=== PATIENT | male | born 1965 | race Caucasian/White ===

== ENCOUNTER 2017-05-11 23:35 | Emergency (ER) | payer OTHER ==
[2017-05-11 23:43] VITALS: TEMP 98.4
--- NOTE | 2017-05-12 | EDPHY ---
H & P Stated Complaint: cough, fever, exhausted HPI/ROS: HPI CHIEF COMPLAINT: Upper respiratory tract infection, cough, generalized weakness , chills HISTORY OF PRESENT ILLNESS: This patient very pleasant 51-year-old male, history of MS, he presents emergency room with feeling globally weak. Patient states he has been intermittently sick for the past 2-3 weeks with an upper respiratory tract infection. He did see his primary care doctor approximately a week ago and started on a Z-Hussain. He now presents emergency room with feeling global weakness. Additionally he reports some chills. No recorded temperature. He denies any chest pain. He does have a cough but nonproductive. He completed the Z-Hussain but does not feel any better. Denies any abdominal pain denies vomiting or diarrhea. States he just does not feel well. Past Medical History: MS Past Surgical History: Denies recent surgery Social History: Denies daily use of drugs alcohol tobacco. Family History: Noncontributory ROS REVIEW OF SYSTEMS: A comprehensive 10 point review of systems is otherwise negative aside from elements mentioned in the history of present illness. Exam Constitutional appears nontoxic, triage nursing summary reviewed, vital signs reviewed, awake/alert. Eyes normal conjunctivae and sclera, EOMI, PERRLA. HENT normal inspection, atraumatic, dry mucus membranes, no epistaxis, neck supple/ no meningismus, no raccoon eyes. Respiratory clear to auscultation bilaterally, normal breath sounds, no respiratory distress, no wheezing. Cardiovascular rate normal, regular rhythm, no murmur, no edema, distal pulses normal. Gastrointestinal bronchitic sounding cough on exam otherwise lung sounds are clear, soft, non-tender, no rebound, no guarding, normal bowel sounds, no distension, no pulsatile mass. Genitourinary no CVA tenderness. Musculoskeletal no midline vertebral tenderness, full range of motion, no calf swelling, no tenderness of extremities, no meningismus, good pulses, neurovascularly intact. Skin pink, warm, & dry, no rash, skin atraumatic. Neurologic awake, alert and oriented x 3, AAOx3, moves all 4 extremities equally, motor intact, sensory intact, CN II-XII intact, normal cerebellar, normal vision, normal speech. Psychiatric normal mood/affect. Heme/Lymph/Immune no lymphadenopathy. Differential Diagnosis: Includes but is not limited to in a particular order acute dehydration, electrolyte disturbance, MS flare, infection, pneumonia, influenza, viral syndrome Medical Decision Making: Plan for this patient chest x-ray two view to rule pneumonia, IV establishment IV fluid bolus, check basic blood work and electrolytes, check influenza. And re-evaluate. DuoNeb breathing treatment. Re-evaluation: EKG interpretation by me on record in [employer] system. Impression time of EKG 0025, sinus rhythm rate of 82. No acute ischemic change appreciated. No ST elevation or ST depression no T-wave abnormalities. Unremarkable nonischemic EKG. 0156: Blood work, EKG, chest x-ray reviewed. No evidence of acute cardiopulmonary disease. Patient is influenza a positive. He has had symptoms for 3-4 days however he is in MS patient. This patient is at higher risk. I will start on Tamiflu here in the emergency room 1st dose given and then prescription as prescribed. I did discuss strict return precautions with the , patient. They understand if he does worse high fever vomiting not feeling well to return emergency room. Additionally I did offer him admission for observation due to generalized weakness and influenza A however he has declined like to go home. Source: Patient - Personal History Current Tetanus Diphtheria and Acellular Pertussis (TDAP): Yes - Medical/Surgical History Hx Asthma: No Hx Chronic Respiratory Disease: No Hx Diabetes: No Hx Cardiac Disease: No Hx Renal Disease: No Hx Cirrhosis: No Hx Alcoholism: No Hx HIV/AIDS: No Hx Splenectomy or Spleen Trauma: No Other PMH: MS, relapsing poly chondritis - Social History Smoking Status: Never smoked Constitutional: Initial Vital Signs Temperature (C) 36.9 C 05/11/17 23:40 Heart Rate 90 05/11/17 23:40 Respiratory Rate 20 05/11/17 23:40 Blood Pressure 131/88 H 05/11/17 23:40 O2 Sat (%) 94 05/11/17 23:40 O2 Delivery Mode Nasal Cannula O2 (L/minute) 3 Allergies/Adverse Reactions: No Known Allergies Allergy (Unverified 05/11/17 23:39) Home Medications: Medication Instructions Recorded Baclofen 05/11/17 GABAPENTIN 05/11/17 Tysabri 05/11/17 Oseltamivir Phosphate [Tamiflu 75 75 mg PO BID #10 cap 05/12/17 mg (*)] Medical Decision Making - Data Points Laboratory Results: Laboratory Results 05/12/17 00:09 05/12/17 00:09 05/12/17 05/12/17 05/12/17 01:13 00:09 00:09 WBC RBC Hgb Hct MCV MCH MCHC RDW Plt Count MPV Neut % (Auto) Lymph % (Auto) Coffey % (Auto) Eos % (Auto) Baso % (Auto) Nucleat RBC Rel Count Absolute Neuts (auto) Absolute Lymphs (auto) Absolute Monos (auto) Absolute Eos (auto) Absolute Basos (auto) Absolute Nucleated RBC Immature Gran % Immature Gran # PT INR APTT VBG Lactic Acid 0.7 mmol/L mmol/L (0.7-2.1) Sodium Potassium Chloride Carbon Dioxide Anion Gap BUN Creatinine Estimated GFR Glucose Calcium Magnesium Pending Total Bilirubin Conjugated Bilirubin Unconjugated Bilirubin AST ALT Alkaline Phosphatase Troponin I NT-Pro-B Natriuret Pep Total Protein Albumin Nasal Influenza A PCR FLU A DETECTED (NEGATIVE) Nasal Influenza B PCR NEGATIVE FOR FLU B (NEGATIVE) 05/12/17 05/12/17 05/12/17 00:09 00:09 00:09 WBC 10.90 10^3/uL H 10^3/uL (3.80-9.50) RBC 4.68 10^6/uL 10^6/uL (4.40-6.38) Hgb 14.9 g/dL g/dL (13.7-17.5) Hct 40.5 % % (40.0-51.0) MCV 86.5 fL fL (81.5-99.8) MCH 31.8 pg pg (27.9-34.1) MCHC 36.8 g/dL H g/dL (32.4-36.7) RDW 12.3 % % (11.5-15.2) Plt Count 196 10^3/uL 10^3/uL (150-400) MPV 9.9 fL fL (8.7-11.7) Neut % (Auto) 69.4 % % (39.3-74.2) Lymph % (Auto) 17.2 % % (15.0-45.0) Coffey % (Auto) 12.6 % % (4.5-13.0) Eos % (Auto) 0.1 % L % (0.6-7.6) Baso % (Auto) 0.3 % % (0.3-1.7) Nucleat RBC Rel Count 0.2 % % (0.0-0.2) Absolute Neuts (auto) 7.58 10^3/uL H 10^3/uL (1.70-6.50) Absolute Lymphs (auto) 1.87 10^3/uL 10^3/uL (1.00-3.00) Absolute Monos (auto) 1.37 10^3/uL H 10^3/uL (0.30-0.80) Absolute Eos (auto) 0.01 10^3/uL L 10^3/uL (0.03-0.40) Absolute Basos (auto) 0.03 10^3/uL 10^3/uL (0.02-0.10) Absolute Nucleated RBC 0.02 10^3/uL H 10^3/uL (0-0.01) Immature Gran % 0.4 % % (0.0-1.1) Immature Gran # 0.04 10^3/uL 10^3/uL (0.00-0.10) PT 13.8 SEC SEC (12.0-15.0) INR 1.04 (0.83-1.16) APTT 30.4 SEC SEC (23.0-38.0) VBG Lactic Acid Sodium 138 mEq/L mEq/L (135-145) Potassium 4.2 mEq/L mEq/L (3.5-5.2) Chloride 102 mEq/L mEq/L (97-110) Carbon Dioxide 23 mEq/l D mEq/l (22-31) Anion Gap 13 mEq/L mEq/L (8-16) BUN 16 mg/dL mg/dL (7-23) Creatinine 1.0 mg/dL mg/dL (0.7-1.3) Estimated GFR > 60 Glucose 105 mg/dL H mg/dL (70-100) Calcium 9.2 mg/dL mg/dL (8.5-10.4) Magnesium Total Bilirubin 0.7 mg/dL mg/dL (0.1-1.4) Conjugated Bilirubin 0.3 mg/dL mg/dL (0.0-0.5) Unconjugated Bilirubin 0.4 mg/dL mg/dL (0.0-1.1) AST 25 IU/L IU/L (17-59) ALT 29 IU/L IU/L (21-72) Alkaline Phosphatase 67 IU/L IU/L (38-126) Troponin I < 0.012 ng/mL ng/mL (0.000-0.034) NT-Pro-B Natriuret Pep 58 pg/mL pg/mL (0-125) Total Protein 6.9 g/dL g/dL (6.3-8.2) Albumin 4.1 g/dL g/dL (3.5-5.0) Nasal Influenza A PCR Nasal Influenza B PCR Medications Given: Discontinued Medications Albuterol/Ipratropium (Duoneb) 3 ml IH EDNOW ONE Stop: 05/12/17 00:06 Last Admin: 05/12/17 00:19 Dose: 3 ml Sodium Chloride (Ns) 1,000 mls @ 0 mls/hr IV ONCE ONE; Wide Open PRN Reason: Protocol Stop: 05/12/17 00:06 Last Admin: 05/12/17 00:19 Dose: 1,000 mls Departure - Departure Disposition: Home, Routine, Self-Care Clinical Impression: Influenza A Condition: Good Instructions: Influenza (ED) Additional Instructions: 1. Make sure to drink lots of fluids stay well-hydrated. 2. Tylenol Motrin you can alternate for fever pain control. 3. If your feeling worse return to the Er. 4. Tamiflu as prescribed. Referrals: JANNIE MURILLO [Primary Care Provider] - As per Instructions Prescriptions: Oseltamivir Phosphate [Tamiflu 75 mg (*)] 75 mg PO BID #10 cap
[2017-05-12] MEDS ORDERED: IPRATROPIUM/ALBUTEROL 3 ML DEYVIAL IH ONE (00:05)
[2017-05-12] MEDS ORDERED: NS 1,000 ML IV ONE (00:05)
--- NOTE | 2017-05-12 00:28 | CPEKG ---
Heart Rate: 82 RR Interval: 732 P-R Interval: 136 QRSD Interval: 86 QT Interval: 368 QTC Interval: 430 P [place]: 1 QRS [place]: 36 T Wave [place]: 25 EKG Severity - NORMAL ECG - EKG Impression: SINUS RHYTHM Electronically Signed By: Xander Hu 12-May-2017 06:33:47
[2017-05-12 00:33] LABS: INR 1.04 (0.83-1.16); PROTIME(PATIENT) 13.8 SEC (12.0-15.0)
[2017-05-12 00:35] LABS: PLATELET COUNT 196 10^3/uL (150-400)
[2017-05-12 02:31] VITALS: BP 138/87; PULSE 75; RESP 16; O2SAT 100
== END 2017-05-12 02:29 | disposition home or self-care (01) ==
DX: J11.1 Influenza due to unidentified influenza virus with other respiratory manifestations (principal); E86.9 Volume depletion, unspecified

== ENCOUNTER 2017-08-28 12:03 | Emergency (ER) | payer OTHER ==
[2017-08-28 12:10] VITALS: BP 150/100
--- NOTE | 2017-08-28 12:49 | EDPHY ---
H & P Stated Complaint: infection in L ear Time Seen by Provider: 08/28/17 12:16 HPI/ROS: CHIEF COMPLAINT: Weakness, left otalgia HISTORY OF PRESENT ILLNESS: 51-year-old male history of relapsing remitting multiple sclerosis, history of recurrent left perichondritis, followed at [facility] Neurology, ENT, has been on multiple antibiotics for his recurrent perichondritis, complaining of progressive all body weakness, myalgias for the past 48 hr as well as continued left otalgia. He had difficulty getting out of bed because he is complaining of diffuse myalgias and weakness. He was eventually able to get himself to the bathroom , and his was able to help ham into a vehicle to get to the hospital. He was transported back to his ER room via wheelchair. He also states that last evening he experience fever and chills. Denies: Nausea or vomiting, headache, slurred speech, nuchal rigidity, abdominal pain, URI symptoms. REVIEW OF SYSTEMS: A ten point review of systems was performed and is negative with the exception of the items mentioned in the HPI PAST MEDICAL & SURGICAL HISTORY: Relapsing remitting multiple sclerosis, recurrent left perichondritis. Chronic right upper extremity weakness. SOCIAL HISTORY: PHYSICAL EXAM (Prior to examination, patient consented to physical exam, hands were washed and my usual and customary physical exam procedures followed) 1) GENERAL: Well-developed, well-nourished, alert and oriented. Appears to be in no acute distress. Smiling, making jokes. 2) HEAD: Normocephalic, atraumatic 3) HEENT: Pupils equal, round, reactive to light bilaterally. Sclera anicteric. Nasopharynx, oropharynx, clear, no lesions. Left ear: Tender to palpation left inferior helix with no discoloration, no erythema, no fluctuance no drainage. The external auditory canal itself is clear, no drainage, no fetid odor, left tympanic membrane appears grossly intact, no erythema. Right ear: Grossly normal examination with no evidence of otitis media or otitis externa. Bilateral mastoid nontender non boggy. 4) NECK: Full range of motion, no meningeal signs. No adenopathy 5) LUNGS: Clear auscultation bilaterally, no wheezes, no rhonchi, no retractions. 6) HEART: Regular rate and rhythm, no murmur, no heave, no gallop. 7) ABDOMEN: No guarding, no rebound, no focal tenderness, negative McBurney's, negative Calderon's, negative Rovsing's, negative peritoneal sign, 8) MUSCULOSKELETAL: Moving all extremities, no focal areas of tenderness, no obvious trauma. No peripheral edema or discoloration. 9) BACK: No CVA tenderness, no midline vertebral tenderness, no fluctuance, no step-off, no obvious trauma, no visual or palpable abnormality. 10) SKIN: No rash, no petechiae. 11) Psychiatric: Patient is oriented X 3, there is no agitation. 12) NEURO: Awake, alert, and oriented to person, place and time. Answers questions appropriately. Mild right upper extremity weakness which patient states is chronic. There were no obvious focal neurologic abnormalities. No cerebellar dysfunction. Cranial nerves 2 through to 12 intact. Normal steady gait. Upper and lower extremities bilaterally with strength 5 / 5, reflexes 2+. DIFFERENTIAL DIAGNOSIS: In no particular order including but limited to sepsis , MS exacerbation, CVA , mastoiditis, cellulitis - Personal History Current Tetanus/Diphtheria Vaccine: Unsure Current Tetanus Diphtheria and Acellular Pertussis (TDAP): Unsure - Medical/Surgical History Hx Asthma: No Hx Chronic Respiratory Disease: No Hx Diabetes: No Hx Cardiac Disease: No Hx Renal Disease: No Hx Cirrhosis: No Hx Alcoholism: No Hx HIV/AIDS: No Hx Splenectomy or Spleen Trauma: No Other PMH: MS, relapsing poly chondritis - Social History Smoking Status: Never smoked Constitutional: Initial Vital Signs Temperature (C) 37.5 C 08/28/17 12:08 Heart Rate 99 08/28/17 12:08 Respiratory Rate 16 08/28/17 12:08 Blood Pressure 150/100 H 08/28/17 12:08 O2 Sat (%) 98 08/28/17 12:08 O2 Delivery Mode Room Air Allergies/Adverse Reactions: No Known Allergies Allergy (Unverified 08/28/17 12:07) Home Medications: Medication Instructions Recorded Baclofen 05/11/17 GABAPENTIN 05/11/17 Tysabri 05/11/17 Clonazepam 08/28/17 Medical Decision Making ED Course/Re-evaluation: 12:30p.m.: I have evaluated the patient. He has a nonfocal exam. He is wondering whether he can be "tested for blood infection" and then go home. I had a lengthy discussion with him and expressed my concern over his progressive weakness which may be secondary to multiple sclerosis exacerbation, possibly exacerbated by his recurrent perichondritis of left ear. I explained to the patient my decision-making process, recommended diagnostic studies from emergency department and discussed likely it admission to the hospital as I am concerned about his ability to care for himself, concerned about his progressive weakness. He would like time to speak with his in private. 12:50 p.m.: Informed at this time that the patient would like to go home. He is declining all diagnostic studies, he is declining all interventions. He states that he prefers to go home and rest and follow up with his neurologist and ENT at [facility]. I believe the patient to have decision-making capacity.. Departure - Departure Disposition: Home, Routine, Self-Care Clinical Impression: Weakness Condition: Good Instructions: Weakness (ED) Additional Instructions: You have declined all diagnostic studies. Please contact your neurologist and urea ENT today. If you change your mind or feel you are unable to care for yourself please return to the closest emergency department or call 911 Referrals: JANNIE MURILLO [Primary Care Provider] - 1-2 days without fail NIH Stroke Scale Date of Exam: 08/28/17 Time of Exam: 12:15 Level of Consciousness: Alert LOC Questions: Answers Both LOC Commands: Performs Both Correctly Best Gaze: Normal Visual: No Visual Loss Motor Arm-Left: No Drift Motor Arm-Right: No Drift Motor Leg-Left: No Drift Motor Leg-Right: No Drift Limb Ataxis: Absent Sensory: Normal Best Language: No Aphasia Dysarthria: Normal Extinction and Inattention (Neglect): No Abnormality NIH Scale Score: 0
== END 2017-08-28 12:57 | disposition home or self-care (01) ==
DX: R53.1 Weakness (principal)